=== PATIENT | female | born 1990 | race Hispanic/Latino ===

== ENCOUNTER 2020-09-22 13:16 | Outpatient (RCR) | payer OTHER, SELFPAY ==
[2020-08-18 11:31] VITALS: BP 100/61; PULSE 82
[2020-09-22 13:50] VITALS: BP 102/70; PULSE 73
== END 2020-10-17 07:46 | disposition home or self-care (01) ==
LOC: ANHOBOP 13:16
PROVIDERS: PCP Obstetrics & Gynecology; Visit Provider Obstetrics & Gynecology
DX: P59.9 Neonatal jaundice, unspecified (principal)
CPT/HCPCS: 59025

== ENCOUNTER 2020-10-03 05:56 | Inpatient (IN) | payer OTHER, SELFPAY ==
[2020-10-03] VITALS (69 sets, daily range): BP systolic 96–128; BP diastolic 61–97; PULSE 64–102; RESP 14–16; TEMP 36.3–36.9; O2SAT 96–100; BMI 33.3
[2020-10-03 06:57] LABS: Basophils Percent Auto 0.3 % (0.2-1.2); Eosinophils Absolute Auto 0.1 K/mm3 (0-0.3); Eosinophils Percent Auto 0.7 % (0-4.4); Hematocrit 36.1 % (37.0-47.0); Hemoglobin 12.4 g/dL (12.0-15.0); Immature Granulocyte Absolute 0.02 K/mm3 (0.00-0.031); Immature Granulocyte Percent A 0.3 % (0-0.5); Lymphocytes Absolute Auto 1.78 K/mm3 (0.9-3.2); Lymphocytes Percent Auto 23.6 % (18.3-44.2); Mean Corpuscular HGB Conc 34.3 g/dl (32-36); Mean Corpuscular Hemoglobin 29.3 pg (26-34); Mean Corpuscular Volume 85.3 fl (80-100); Mean Platelet Volume 11.2 fl (7.4-10.4); Monocytes Absolute Auto 0.7 K/mm3 (0.1-0.6); Monocytes Percent Auto 8.9 % (2.6-8.5); Neutrophils Percent Auto 66.2 % (45.5-73.1); Platelet Count Result 249 k/mm3 (150-375); Red Blood Count 4.23 M/mm3 (4.2-5.4); White Blood Count 7.5 K/mm3 (4.5-10.0)
--- NOTE | 2020-10-03 07:09 | LDADM ---
This patient, Henrietta Wilburn, was admitted to Labor/Delivery/Recovery 103 on 10/03/20 at 05:56. Plans for labor, pain management and were discussed with patient. Patient/family oriented to hospital policies and general routines including ID bracelet, bed and alarms, visiting hours, pain management, procedures, bathroom and other care routines, personal items, smoking policy, room service/diet and guest tray routines, security routines, and visiting hours. Patient/Family are encouraged to report perceived risks to care and to ask questions if they do not understand what they are told or what they should do. See OBIX for further documentation.
[2020-10-03] MEDS: LACTATED RINGERS 1,000 ML 125 ML IV CONT (07:21)
[2020-10-03] MEDS: OXYTOCIN 30 UNITS/NS 500 ML 30 UNITS/500 ML BAG IV CONT (07:27)
[2020-10-03 07:38] LABS: Glucose Point of Care 110 (65-105)
--- NOTE | 2020-10-03 07:51 | WPDOBADMIT ---
Obstetrics - Admit Note Admission Note: record reviewed. No pertinent additions to the history and/or any subsequent changes in the physical findings that are not consistent with the expected course of the were found. Additions to the history and/or subsequent changes in the physical findings follow. None. 39.5 well controlled GDM on 8u NPH at night. Also HSV on valtrex. AROM clear/blood tinged. 2.5cm/50/-3. Pitocin per protocol. GBS neg.
[2020-10-03] MEDS: LACTATED RINGERS 1,000 ML 999 ML IV CONT (09:42)
--- NOTE | 2020-10-03 10:34 | WPDANESEPP ---
Anes - Eval Pre Procedure Procedure: Labor Epidural Date/Time: 10/03/20 10:34 Surgeon: Yovani Preop Diagnosis: Labor Pain Pre Op Diagnosis: Induction Patient Data Age: 30 Gender: F Height: 4 ft 11 in Weight: 75 kg Last Vital Signs Temp 36.6 C 10/03/20 09:30 Pulse 73 10/03/20 10:33 BP 110/68 10/03/20 10:33 Pulse Ox 97 10/03/20 10:29 Allergies Allergy/AdvReac Type Severity Reaction Status Date / Time No Known Allergies Allergy Verified 09/05/20 13:35 Home Medications Medication Instructions Recorded Confirmed Type insulin NPH isoph U-100 human 8 unit SUBCUT HS 09/05/20 09/05/20 History [Humulin N NPH U-100 Insulin] prenat.vits,jessica,ror-oyvo-yylwd 1 tablet PO DAILY 09/05/20 09/05/20 History [ #2] valacyclovir [Valtrex] 1,000 mg PO DAILY 10/03/20 10/03/20 History Laboratory Tests 10/03/20 10/03/20 10/03/20 06:51 06:51 06:51 WBC 7.5 K/mm3 K/mm3 (4.5-10.0) RBC 4.23 M/mm3 M/mm3 (4.2-5.4) Hgb 12.4 g/dL g/dL (12.0-15.0) Hct 36.1 % L % (37.0-47.0) MCV 85.3 fl fl (80-100) MCH 29.3 pg pg (26-34) MCHC 34.3 g/dl g/dl (32-36) RDW 16.0 % H % (11.5-14.5) Plt Count 249 k/mm3 k/mm3 (150-375) MPV 11.2 fl H fl (7.4-10.4) Immature Gran % (Auto) 0.3 % % (0-0.5) Neut % (Auto) 66.2 % % (45.5-73.1) Lymph % (Auto) 23.6 % % (18.3-44.2) Garvin % (Auto) 8.9 % H % (2.6-8.5) Eos % (Auto) 0.7 % % (0-4.4) Baso % (Auto) 0.3 % % (0.2-1.2) Lymph # (Auto) 1.78 K/mm3 K/mm3 (0.9-3.2) Garvin # (Auto) 0.7 K/mm3 H K/mm3 (0.1-0.6) Eos # (Auto) 0.1 K/mm3 K/mm3 (0-0.3) Baso # (Auto) 0.0 K/mm3 K/mm3 (0.0-0.1) Abs Immat Gran (auto) 0.02 K/mm3 K/mm3 (0.00-0.031) Absolute Neuts (auto) 5.0 K/mm3 K/mm3 (1.3-6.7) Absolute Nucleated RBC 0.0 K/mm3 K/mm3 (0.0-0.012) Nucleated RBC % 0.0 % % (0.0-0.2) POC Capillary Glucose RPR Pending Blood Type O Positive Antibody Screen Negative 10/03/20 07:34 WBC RBC Hgb Hct MCV MCH MCHC RDW Plt Count MPV Immature Gran % (Auto) Neut % (Auto) Lymph % (Auto) Garvin % (Auto) Eos % (Auto) Baso % (Auto) Lymph # (Auto) Garvin # (Auto) Eos # (Auto) Baso # (Auto) Abs Immat Gran (auto) Absolute Neuts (auto) Absolute Nucleated RBC Nucleated RBC % POC Capillary Glucose 110 mg/dl mg/dl (65-105) RPR Blood Type Antibody Screen : gestational age (SHAMA 10/05/20, ) Patient hx anesthesia problems: none Family hx anesthesia problems: none [facility] Family History Family History Other Unknown family medical history Social History Social History Smoking status: Never smoker Second hand tobacco smoke exposure: No Substance use: never Spiritual care concerns: No Exam Day of Procedure 10/03/20 10:34 Patient weight: normal Heart: regular rate and rhythm Lungs: normal air movement Airway: Mallampati scale class II Neurological: alert and oriented
[2020-10-03 11:45] LABS: Glucose Point of Care 90 (65-105)
--- NOTE | 2020-10-03 12:27 | PM.OBPRVD ---
OB - Delivery Note Procedure Delivery date: 10/03/20 Procedure: events: Gestational Diabetes Intrapartal events: None Induction method: AROM and per pitocin protocol Delivery monitor: external FHT Route of delivery: Laceration Description: Perineal - 2nd Degree Delivery repair: vicryl Specimen: No Quantitative Blood Loss (ml): 300 Anesthesia type: Epidural Disposition: floor Narrative: With adequate expulsive efforts by the mother, the baby's head was delivered OA. The baby's anterior shoulder was delivered under the pubic symphysis without difficulty. The posterior shoulder and the rest of the baby delivered without difficulty. The infant was placed on the mothers chest and suctioned and stimulated. The cord was clamped and cut after 30 seconds. Mother and baby both stable. Baby Date of : 10/03/20 Time of : 12:12 Weeks of gestation at delivery: 39 gender: Female Weight (pounds): 6 Weight (ounces): 15 presentation: vertex position: Left Occiput Anterior Placenta delivery description: Spontaneous cord vessel description: 3 Vessels and Delayed Cord Clamping score one minute: 8 score five minutes: 9
[2020-10-03] MEDS: OXYTOCIN 30 UNITS/NS 500 ML 30 UNITS/500 ML BAG 125 UNITS IV CONT (12:54)
[2020-10-03] MEDS: IBUPROFEN 600 MG TABLET PO (13:43)
--- NOTE | 2020-10-03 14:55 | OBPPTRN ---
Addendum entered by Briana Hill RN 10/03/20 16:18: Admission completed with the assistance of the [employer] terrazzo finisher line. Original Note: Patient transferred to post room # 291 via wheelchair. Support person present. Oriented to unit, room, information board, rooming in, admission packet and security measures. Patient verbalizes understanding.
--- NOTE | 2020-10-03 15:37 | PC.NURSE ---
Consulted with patient, reviewed feeding elimination flow sheet and when to call doctor when discharged. Given mom the number for once she is discharged. Mom states she wants to pump and bottlefeed, encouraged mom to pump every 3 hours. Breast pump provided due to mother requesting to pump and feed. Instructions given on breast pump care and usage, pumping schedule, nipple care, and collection and storage of breast milk. Encouraged [id number], breast massage and manual expression to stimulate supply. Assessed patient for correct flange size, placement and draw. Patient verbalizes and demonstrates understanding of instructions.
[2020-10-03] MEDS: ACETAMINOPHEN 325 MG TABLET 650 MG PO (17:04)
[2020-10-04] MEDS: IBUPROFEN 600 MG TABLET PO ×3 (00:13→15:21)
[2020-10-04 04:10] VITALS: BP 93/58; PULSE 76; RESP 16; TEMP 36.6; O2SAT 99
[2020-10-04 04:16] LABS: Glucose Point of Care 101 (65-105)
[2020-10-04] MEDS: ACETAMINOPHEN 325 MG TABLET 650 MG PO (04:16)
--- NOTE | 2020-10-04 04:27 | PC.NURSE ---
Fasting blood sugar result of 101 at 0410 this am.
[2020-10-04 04:52] LABS: Hemoglobin 10.3 g/dL (12.0-15.0)
--- NOTE | 2020-10-04 07:33 | P.PNOB_ITS ---
OB - PN: Subj Subjective Date/time seen: 10/04/20 07:33 Patient comments: no complaints baby status: doing well and nursing well [place] feeding status: breast and bottle feeding Narrative: Some cramping. E/A/V. Ready for DC home today. OB - PN: Obj Data Labs CBC & Chem 7: 10/04/20 04:06 Labs: Laboratory Results - last 24 hr 10/03/20 10/03/20 10/03/20 06:51 07:34 11:31 Hgb Hct POC Capillary Glucose 110 90 Blood Type O Positive Antibody Screen Negative 10/04/20 10/04/20 04:04 04:06 Hgb 10.3 L Hct 30.0 L POC Capillary Glucose 101 Blood Type Antibody Screen OB - PN A/P Plan day: 1 Plan: routine care and discharge home Comments: DC instructions given. FU 4 weeks. Time Spent With Patient Time: Total time spent is greater than 50% in coordination of care (as documented) at patient's floor/unit and/or counseling patient: Time with patient: less than 15 minutes Exam Narrative: Exam Narrative: NAD abdomen soft, nontender, fundus firm below the umbilicus Extremities nontender, 1+ edema
--- NOTE | 2020-10-04 07:37 | P.DS_ITS ---
DS: Admitting Diagnosis Admitting Diagnosis Admitting Diagnosis: term IUP 39.5, GDMA2 DS: Discharge Diagnosis Discharge Diagnosis (1) Term delivered: Code(s): O80 - Encounter for full-term uncomplicated delivery Status: Acute (2) Gestational diabetes: Code(s): O24.419 - Gestational diabetes mellitus in , unspecified control Status: Acute OB - DS: Summary OB Procedures : None OB Procedures Intrapartum: Spontaneous Vag Delivery OB Procedures: : None Peripartum Data Delivery Method: Natural Vaginal Laceration Description: Perineal - 2nd Degree complications: none Status at Discharge Functional status at discharge: independent ambulation Time Spent with Patient Time attestation: Total time spent providing and/or coordinating discharge services: Exam Narrative: Exam Narrative: NAD abdomen soft, appropriately tender Ext non tender, 1+ edema DS: Data Data Completed and Pending Labs on day of discharge: Labs from last 24 hours 10/04/20 10/04/20 10/03/20 04:06 04:04 11:31 Hgb 10.3 L Hct 30.0 L POC Capillary Glucose 101 90 Blood Type Antibody Screen 10/03/20 10/03/20 07:34 06:51 Hgb Hct POC Capillary Glucose 110 Blood Type O Positive Antibody Screen Negative Discharge Plan Discharge Attending physician on discharge: Mandy Purcell Discharging Clinician: Mandy Purcell Anticipated Discharge Date/Time: 10/04/20 14:00 Patient Disposition: Home, Self-Care Activity: may shower and pelvic rest Diet: as tolerated Discharge Instructions: FU 4 weeks pelvic rest 6 weeks Patient Instructions: Antibiotic Form Patient Language: Greenlandic Stand Alone Forms: General Discharge Information Follow-up/Referrals: Mandy Purcell MD [Physician] - (4 weeks) Discharge Medications: Continued #2 Tablet 1 tablet PO DAILY RF: 0 Discontinued Humulin N NPH U-100 Insulin 100 unit/mL Suspension 8 unit SUBCUT HS RF: 0 valacyclovir [Valtrex] 1 gram tablet 1,000 mg PO DAILY RF: 0 Date of admission: 10/03/20 05:56 Primary Care Provider: PHYSICIAN,MANUFACTURING QUALITY INSPECTOR Admitting Provider: Yajaira Pina Attending physician on admission: Yajaira Pina Condition: Stable
--- NOTE | 2020-10-04 07:42 | P.DS_ITS ---
DS: Admitting Diagnosis Admitting Diagnosis Admitting Diagnosis: IUP 39.5 GDMA2 DS: Discharge Diagnosis Discharge Diagnosis (1) Term delivered: Code(s): O80 - Encounter for full-term uncomplicated delivery Status: Acute (2) Gestational diabetes: Code(s): O24.419 - Gestational diabetes mellitus in , unspecified control Status: Acute DS: Summary Hospital Course Hospital Course: Uncomplicated pp course. Status at Discharge Functional status at discharge: independent ambulation Time Spent with Patient Time attestation: Total time spent providing and/or coordinating discharge services: Exam Narrative: Exam Narrative: NAD abdomen soft, appropriately tender Ext non tender, 1+ edema DS: Data Data Completed and Pending Labs on day of discharge: Labs from last 24 hours 10/04/20 10/04/20 10/03/20 04:06 04:04 11:31 Hgb 10.3 L Hct 30.0 L POC Capillary Glucose 101 90 Blood Type Antibody Screen 10/03/20 06:51 Hgb Hct POC Capillary Glucose Blood Type O Positive Antibody Screen Negative Discharge Plan Discharge Attending physician on discharge: Mandy Purcell Discharging Clinician: Mandy Purcell Anticipated Discharge Date/Time: 10/04/20 14:00 Patient Disposition: Home, Self-Care Activity: may shower and pelvic rest Diet: as tolerated Discharge Instructions: FU 4 weeks pelvic rest 6 weeks Patient Instructions: Antibiotic Form Patient Language: Urdu Stand Alone Forms: General Discharge Information Follow-up/Referrals: Mandy Purcell MD [Physician] - (4 weeks) Discharge Medications: Continued #2 Tablet 1 tablet PO DAILY RF: 0 Discontinued Humulin N NPH U-100 Insulin 100 unit/mL Suspension 8 unit SUBCUT HS RF: 0 valacyclovir [Valtrex] 1 gram tablet 1,000 mg PO DAILY RF: 0 Date of admission: 10/03/20 05:56 Primary Care Provider: PHYSICIAN,WELL LOGGING CAPTAIN MUD ANALYSIS Admitting Provider: Yajaira Pina Attending physician on admission: Yajaira Pina Condition: Stable
[2020-10-04 08:00] VITALS: BP 89/58; BP 89/59; PULSE 80; RESP 18; TEMP 36.3; O2SAT 100
--- NOTE | 2020-10-04 08:03 | WPDANLDPN2 ---
Anes-Prog Note L&D Date/Time: 10/04/20 08:03 Comfortable throughout: labor and delivery Neuraxial method: epidural Epidural/Spinal procedure site: clean & non-tender Neuro status: Neuro function grossly intact. Cardiovascular status: normal Respiratory status: normal Airway patency: baseline Mental status: baseline Post-Op hydration status: normal Vital Signs: Last Vital Signs Temp 36.6 C 10/04/20 04:10 Pulse 76 10/04/20 04:10 Resp 16 10/04/20 04:10 BP 93/58 L 10/04/20 04:10 Pulse Ox 99 10/04/20 04:10 Pain score (VAS): 0 I/O: Intake & Output 10/03/20 10/04/20 10/04/20 23:59 07:59 15:59 Output Total 117 Balance -117 Post-procedural complaints: none Patient feedback: Patient satisfied with anesthetic care.
[2020-10-04] MEDS: WITCH HAZEL 40 PADS 1 PAD TOPICAL (08:34)
[2020-10-04] MEDS: MULTIVIT/MIN/PREN/FOL AC/IRON TABLET 1 TAB PO (08:34)
[2020-10-04] MEDS: DOCUSATE SODIUM 100 MG CAPSULE PO (08:34)
[2020-10-04] MEDS: BENZOCAINE 20% AER SPR (*SP) 56 GM CAN 1 SPRAY TOPICAL (08:34)
[2020-10-04] MEDS: LANOLIN (LANSINOH) 7.5 GM CREAM 1 APPLIC TOPICAL (08:34)
--- NOTE | 2020-10-04 09:37 | PC.NURSE ---
Reviewed Instructions given on breast pump care and usage, pumping schedule, nipple care, and collection and storage of breast milk. Encouraged vufc-sk-[id number], breast massage and manual expression to stimulate supply. Patient verbalizes and demonstrates understanding of instructions.
--- NOTE | 2020-10-04 09:43 | PC.NURSE ---
education done using language device.
[2020-10-04 11:08] LABS: Rapid Plasma Reagin Non-Reactive (NonReactive)
[2020-10-04] MEDS: TETANUS,DIPHTHERIA,AC PERTUSSIS ADULT (0.5 ML) BOOSTRIX IM (15:19)
--- NOTE | 2020-10-04 16:05 | PC.NURSE ---
Self care and infant care discharge instructions given through the [employer] with estonian speaking jtac. Included instructions were when to return for follow up visit date and time. Pt. and verbalized understanding. No questions or concerns voiced. Very pleasant and cooperative.
[2020-10-05 08:27] VITALS: BP 114/67; PULSE 74; RESP 20; TEMP 36.9; O2SAT 99
== END 2020-10-04 16:00 | disposition home or self-care (01) | DRG 560 ==
LOC: ANHOB2 10-04 07:42 → ANHLDR 10-06 09:36 → ANHOB2 10-06 09:36
PROVIDERS: Admitting Provider Obstetrics & Gynecology; Visit Provider Obstetrics & Gynecology
DX: O24.429 Gestational diabetes mellitus in childbirth, unspecified control (principal); Z37.0 Single live birth; Z3A.39 39 weeks gestation of pregnancy; O98.32 Other infections with a predominantly sexual mode of transmission complicating childbirth; B00.9 Herpesviral infection, unspecified; O70.1 Second degree perineal laceration during delivery; Z23 Encounter for immunization
CPT/HCPCS: 36415; 85014; 85018; 85025; 86592; 86850; 86900; 86901; 90471; 90653; 90715; A9270; G0008; J2590; J2795; J7120

== ENCOUNTER 2020-11-21 09:52 | Emergency (ER) | payer OTHER, SELFPAY ==
[2020-11-21 10:39] VITALS: BP 97/64; PULSE 98; RESP 18; TEMP 36.9; O2SAT 99
--- NOTE | 2020-11-21 11:44 | ED.SKABFB ---
HPI - Skin/Abscess/Foreign Bdy General Chief complaint: Skin/Abscess/Foreign Body <Farzaneh Dang PA-C - Last Filed: 11/21/20 13:00> Stated complaint: , pain to left breast and temp 100.3 <ISABELA Hudson Last Filed: 11/21/20 13:00> Time Seen by Provider: 11/21/20 11:05 <ISABELA Hudson Last Filed: 11/21/20 13:00> Source: patient <ISABELA Hudson Last Filed: 11/21/20 13:00> Mode of arrival: ambulatory <ISABELA Hudson Last Filed: 11/21/20 13:00> Limitations: language barrier (Used video translator/interpreter) <ISABELA Hudson Last Filed: 11/21/20 13:00> History of Present Illness HPI narrative: This is a 30-year-old female that presents the emergency department for left breast pain since yesterday. Reports tenderness and swelling to the area. Reports a fever of 100.3 in the night. Reports she is currently pumping, she is not breast-feeding. Reports the last time she pumped with her left breast was yesterday morning as it is very painful. Reports she is about 7 weeks . She does have an appointment to see her OB on of this week. Denies erythema. <Farzaneh Dang PA-C - Last Filed: 11/21/20 13:00> Related Data Home medications: Home Medications Medication Instructions Recorded Confirmed prenat.vits,jessica,gwi-pftm-jxqps 1 tablet PO DAILY 09/05/20 09/05/20 <ISABELA Hudson Last Filed: 11/21/20 13:00> Allergies/Adverse reactions: Allergies Allergy/AdvReac Type Severity Reaction Status Date / Time No Known Allergies Allergy Verified 11/21/20 12:06 <ISABELA Husdon Last Filed: 11/21/20 13:00> Review of Systems Review of Systems: Narrative: CONSTITUTIONAL: Reports fever BREAST: Reports swelling. Denies redness <ISABELA Hudson Last Filed: 11/21/20 13:00> All systems reviewed & are unremarkable except as noted in HPI and below <Farzaneh Dang PA-C - Last Filed: 11/21/20 13:00> [facility] Past Medical History Medical History: Medical History (Updated 11/21/20 @ 11:45 by Farzaneh Dang PA-C) Patient denies medical problems <Farzaneh Dang PA-C - Last Filed: 11/21/20 13:00> Family History Family History: Family History (System 10/05/20 @ 13:22 by Clarisse Garvey) Other Unknown family medical history <Farzaneh Dang PA-C - Last Filed: 11/21/20 13:00> Social History Social History: Social History (System 10/05/20 @ 13:22 by Clarisse Garvey) Smoking status: Never smoker Second hand tobacco smoke exposure: No Substance use: never Gender identity (if verbalized by the patient): Female Spiritual care concerns: No <Farzaneh Dang PA-C - Last Filed: 11/21/20 13:00> Exam Narrative: Exam Narrative: GENERAL: Well-appearing, well-nourished, and in no acute distress. HEAD: Normocephalic, atraumatic. EYES: EOMI. CHEST: Clear to auscultation. No respiratory distress. No wheezes rales or rhonchi HEART: Regular rate and rhythm. No murmur heard. Normal peripheral pulses. EXTREMITIES: Normal range of motion. No edema. SKIN: Warm, dry, no rash. NEURO: No focal deficits. Alert and oriented x3. PSYCH: Normal mood and affect BREAST: Left breast tender to palpation. No concerning swelling or erythema. Mild is easily expressed from the nipple <Farzaneh Dang PA-C - Last Filed: 11/21/20 13:00> Course Consultations Consultation #1: Spoke with Dr. Pina about patient and work-up. Patient will follow up at scheduled appointment this week <Farzaneh Dang PA-C - Last Filed: 11/21/20 13:00> Date: 11/21/20 <Farzaneh Dang PA-C - Last Filed: 11/21/20 13:00> Time: 12:53 <Farzaneh Dang PA-C - Last Filed: 11/21/20 13:00> Vital Signs Vital signs: Vital Signs Temperature 98.4 F 11/21/20 10:39 Pulse Rate 98 11/21/20 10:39 Respiratory Rate 18 11/21/20 10:39 Blood Pressure 97/64 L 11/21/20 10:39 P
== END 2020-11-21 13:05 | disposition home or self-care (01) ==
PROVIDERS: Emergency Provider General Practice; PCP Registered Nurse
DX: O91.22 Nonpurulent mastitis associated with the puerperium (principal)
CPT/HCPCS: 99283

== ENCOUNTER 2021-08-25 23:28 | Emergency (ER) | payer OTHER, SELFPAY ==
--- NOTE | ~2021-08-25 | CT_ITS ---
EXAMINATION: CT brain wo con DATE: 08/26/2021 03:34 INDICATION: Headache TECHNIQUE: Computed tomography (CT) of the head was performed without intravenous contrast. Sagittal and coronal reconstructions were performed. The mA was adjusted according to patient size. Iterative reconstruction technique was employed. The dose-length product was 605.33 mGy-cm. COMPARISON: None FINDINGS: No acute intracranial hemorrhage, acute infarction or abnormal extra axial fluid collection. Ventricl es are normal and symmetric. No mass/mass effect. The orbits, paranasal sinuses and mastoid air cells are normal. IMPRESSION: 1. Normal head CT. Reviewed, dictated and finalized at location A. OLOGIC TECHNOLOGIST IMPRESSION: 1. Normal head CT.
[2021-08-25 23:31] VITALS: BP 124/74; PULSE 66; RESP 18; TEMP 35.8; O2SAT 99
[2021-08-26 02:14] VITALS: BP 122/76; PULSE 64; RESP 15; O2SAT 100
[2021-08-26] MEDS: diphenhydrAMINE HCl INJ 50 MG/ML VIAL 25 MG IV PUSH (03:51)
[2021-08-26 03:52] VITALS: BP 117/73; PULSE 70; RESP 17; O2SAT 97
[2021-08-26] MEDS: PROCHLORPERAZINE EDISYLATE 10 MG/2 ML VIAL IV PUSH (03:52)
[2021-08-26] MEDS: SODIUM CHLORIDE 0.9% IV 1,000 ML 999 ML IV CONT (03:52)
--- NOTE | 2021-08-26 03:56 | ED.HA ---
HPI - Headache General Chief Complaint: Headache Stated Complaint: headache Time Seen by Provider: 08/26/21 02:58 Source: patient and historical interpreter History of Present Illness HPI Narrative: Patient presents with concern for headache. Patient tos she has had intermittent headaches since she was 15 years that resolved with rest however over the years they have become increasingly more intense and no longer appear to be alleviated with Tylenol so she came to the ER for evaluation. Her pain is achy/throbbing/sharp, no clear aggravating or alleviating factors, radiates down the right side of her neck. She does report some paresthesias on her arm. She denies any trauma or recent spinal instrumentation. She denies any history of IV drug use. She denies any fevers, cough, nausea, vomiting Related Data Home Medications Medication Instructions Recorded Confirmed No Home Medications 06/29/21 06/29/21 Allergies Allergy/AdvReac Type Severity Reaction Status Date / Time No Known Allergies Allergy Verified 08/26/21 02:15 Review of Systems Review of Systems: CONSTITUTIONAL: Denies fever, chills, or sweats. EYES: Denies visual changes, redness, or discharge. ENT: Denies rhinorrhea, congestion, sore throat, or otalgia. CARDIOVASCULAR: Denies chest pain, palpitations, or edema. RESPIRATORY: Denies cough or dyspnea. GASTROINTESTINAL: Denies abdominal pain, nausea, vomiting, or diarrhea. GENITOURINARY: Denies dysuria or hematuria. SKIN: Denies rash or itching. MUSCULOSKELETAL: Denies back pain, joint pain, or myalgia. NEUROLOGIC: Denies dizziness, or weakness. PSYCHIATRIC: Denies anxiety or depression. All systems reviewed & are unremarkable except as noted in HPI and below PMFSH Past Medical History Medical History Patient denies medical problems Family History Family History Other Unknown family medical history Social History Social History Smoking status: Never smoker Second hand tobacco smoke exposure: No Substance use: never Gender identity (if verbalized by the patient): Female Spiritual care concerns: No Exam Narrative: GENERAL: Well-appearing, well-nourished, and in no acute distress. HEAD: Normocephalic, atraumatic. EYES: PERRLA and EOMI. ENT: Nares clear, no rhinorrhea or epistaxis. Mucous membranes moist. NECK: Supple. No masses. No JVD CHEST: Clear to auscultation. No respiratory distress. No wheezes rales or rhonchi HEART: Regular rate and rhythm. No murmur heard. Normal peripheral pulses. ABDOMEN: Soft, nontender, nondistended, normal active bowel sounds. EXTREMITIES: Normal range of motion. No edema. SKIN: Warm, dry, no rash. NEURO: Cranial nerves II through XII are intact patient has 5 out of 5 strength in all extremities, sensation intact to light touch in all extremities. alert and oriented x3. PSYCH: Normal mood and affect. Course Reevaluation(s) Reevaluation #1: Patient ports feeling much improved results obtained with patient. Patient comfortable with outpatient plan. Date: 08/26/21 Time: 05:55 Vital Signs Vital signs: Vital Signs Temperature 35.8 C L 08/25/21 23:31 Pulse Rate 66 08/25/21 23:31 Respiratory Rate 18 08/25/21 23:31 Blood Pressure 124/74 08/25/21 23:31 Pulse Oximetry 99 08/25/21 23:31 Temperature 35.8 C L 08/25/21 23:31 Pulse Rate 60 08/26/21 06:24 Respiratory Rate 16 08/26/21 06:24 Blood Pressure 115/73 08/26/21 06:24 Pulse Oximetry 100 08/26/21 06:24 MDM - Headache MDM Narrative Medical decision making narrative: H&P as above, vss, pt looks clinically well, exam without focal neurological deficits, labs clinically unremarkable, img clinically unremarkable, additional labs/img considered, symptomatic relief available as needed, on reevaluation pt continues to lo
[2021-08-26 04:09] LABS: Basophils Percent Auto 0.3 % (0.2-1.2); Eosinophils Absolute Auto 0.2 K/mm3 (0-0.3); Eosinophils Percent Auto 2.7 % (0-4.4); Hematocrit 38.4 % (37.0-47.0); Hemoglobin 13.2 g/dL (12.0-15.0); Immature Granulocyte Absolute 0.02 K/mm3 (0.00-0.031); Immature Granulocyte Percent A 0.3 % (0-0.5); Lymphocytes Percent Auto 38.1 % (18.3-44.2); Mean Corpuscular HGB Conc 34.4 g/dl (32-36); Mean Corpuscular Hemoglobin 30.6 pg (26-34); Mean Corpuscular Volume 88.9 fl (80-100); Mean Platelet Volume 9.6 fl (7.4-10.4); Monocytes Absolute Auto 0.6 K/mm3 (0.1-0.6); Neutrophils Absolute Auto 3.7 K/mm3 (1.3-6.7); Neutrophils Percent Auto 50.6 % (45.5-73.1); Platelet Count Result 379 k/mm3 (150-375); Red Blood Count 4.32 M/mm3 (4.2-5.4); Red Cell Distribution Width 13.2 % (11.5-14.5); White Blood Count 7.4 K/mm3 (4.5-10.0)
[2021-08-26 04:21] LABS: Alanine Aminotransferase 20 U/L (4-35); Albumin Level 4.5 g/dL (3.5-5.1); Alkaline Phosphatase 77 U/L (38-126); Anion Gap 9 mmol/L (8-16); Aspartate Amino Transferase 22 U/L (14-36); Bilirubin,Total 0.6 mg/dL (0.2-1.3); Blood Urea Nitrogen 15 mg/dL (7-17); Calcium 9.4 mg/dL (8.4-10.2); Carbon Dioxide 25 mmol/L (22-30); Chloride 101 mmol/L (98-107); Estimated CRCL calculation 129 ml/min; Estimated Glomerular Filt Rate > 60; Glucose 101 mg/dL (65-110); Potassium 3.6 mmol/L (3.4-5.0); Sodium 135 mmol/L (137-145)
[2021-08-26 05:00] VITALS: BP 110/62; PULSE 64; RESP 17; O2SAT 99
[2021-08-26 06:24] VITALS: BP 115/73; PULSE 60; RESP 16; O2SAT 100
== END 2021-08-26 06:26 | disposition home or self-care (01) ==
PROVIDERS: Emergency Provider Emergency Medicine; PCP Registered Nurse
DX: R51.9 Headache, unspecified (principal)
CPT/HCPCS: 36415; 70450; 80053; 85025; 96365; 96375; 99284; J0131; J0780; J1200; J7030

== ENCOUNTER 2022-10-10 14:50 | Emergency (ER) | payer OTHER, SELFPAY ==
[2022-10-10 14:59] VITALS: BP 103/67; PULSE 69; RESP 16; TEMP 36.5; O2SAT 99
--- NOTE | 2022-10-10 15:06 | ED.GENADULT ---
HPI - General Adult General Chief complaint: Dental/Oral Stated complaint: SORES IN MOUTH Source: patient Mode of arrival: ambulatory Limitations: no limitations History of Present Illness HPI narrative: 32-year-old female presenting for complaint of fever blister to the right lower lip corner. Onset 2 days ago. She has been using Abreva. She states this started off with his increased in size. Endorses pain. Denies drainage. Denies recent illness. Denies any other locations of lesions. Also denies history of these lesions. Related Data Allergies Allergy/AdvReac Type Severity Reaction Status Date / Time No Known Allergies Allergy Verified 10/10/22 14:56 Review of Systems Review of Systems: CONSTITUTIONAL: Denies body aches, fever, chills, or sweats. EYES: Denies visual changes, redness, or discharge. ENT: Denies rhinorrhea, congestion CARDIOVASCULAR: Denies chest pain, palpitations, or edema. RESPIRATORY: Denies cough or dyspnea. GASTROINTESTINAL: Denies abdominal pain, nausea, vomiting, or diarrhea. SKIN: per HPI MUSCULOSKELETAL: Denies back pain, joint pain, or myalgia. NEUROLOGIC: Denies headache, numbness, tingling, or weakness. [facility] Past Medical History Medical History Patient denies medical problems Family History Family History Other Unknown family medical history Social History Social History Smoking status: Never smoker Second hand tobacco smoke exposure: No Substance use: never Gender identity (if verbalized by the patient): Female Spiritual care concerns: No Comments At time of signature, I have reviewed and agree with nursing past medical, surgical, social and family history unless otherwise noted. Please see nursing chart for further information. There is no relevant family history pertinent to the presenting complaint Exam Narrative: GENERAL: Well-appearing HEAD: Normocephalic, atraumatic. EYES: conjunctivae clear, and EOMI. ENT: Mucous membranes moist. Oropharynx without edema, erythema or lesions. NECK: Supple. No lymphadenopathy CHEST: Clear to auscultation. HEART: Regular rate and rhythm. SKIN: Warm, dry. Right lower corner of mouth with vesicular lesion approx 0.5cm diameter c/w herpes labialis, no active drainage, tender with palpation NEURO: Alert and oriented x3. Course Course Emergency Course: Patient is aware of diagnosis, understands and agrees to treatment plan. Anticipatory guidance given. Patient agrees to follow-up as directed and is aware of reasons to seek care at the emergency department. Portions of this record may have been created with voice recognition software Level of Care: Express Care Visit Vital Signs Vital signs: Vital Signs Temperature 97.7 F 10/10/22 14:59 Pulse Rate 69 10/10/22 14:59 Respiratory Rate 16 10/10/22 14:59 Blood Pressure 103/67 10/10/22 14:59 Pulse Oximetry 99 10/10/22 14:59 Temperature 97.7 F 10/10/22 14:59 Pulse Rate 69 10/10/22 14:59 Respiratory Rate 16 10/10/22 14:59 Blood Pressure 103/67 10/10/22 14:59 Pulse Oximetry 99 10/10/22 14:59 Reviewed Medical Decision Making Differential Diagnosis Differential Diagnosis: cellulitis, zoster, HSV Vital Signs Vital Signs: Vital Signs Temperature 97.7 F 10/10/22 14:59 Pulse Rate 69 10/10/22 14:59 Respiratory Rate 16 10/10/22 14:59 Blood Pressure 103/67 10/10/22 14:59 Pulse Oximetry 99 10/10/22 14:59 Temperature 97.7 F 10/10/22 14:59 Pulse Rate 69 10/10/22 14:59 Respiratory Rate 16 10/10/22 14:59 Blood Pressure 103/67 10/10/22 14:59 Pulse Oximetry 99 10/10/22 14:59 Discharge Plan Discharge Clinical Impression: Cold sore Patient Disposition: Home, Self-Care Condition: Stable Instructions: Ora
== END 2022-10-10 15:12 | disposition home or self-care (01) ==
PROVIDERS: Emergency Provider Nurse Practitioner Family; PCP Registered Nurse
DX: B00.1 Herpesviral vesicular dermatitis (principal)
CPT/HCPCS: 99213; G0463

== ENCOUNTER 2022-12-27 13:15 | Outpatient (CLI) | payer OTHER, SELFPAY ==
--- NOTE | ~2022-12-27 | MMUS_ITS ---
EXAMINATION: MM diagnostic roxy BI w vahid, US breast RT limited HISTORY: Right breast lump. TECHNIQUE: Additional 3-D tomosynthesis images of the breasts were performed and synthetic 2-D images were generated. CAD analysis was submitted and interpreted. High resolution Limited right breast ult rasound was performed. COMPARISON: No prior studies for comparison. BREAST PARENCHYMAL COMPOSITION: The breasts are heterogeneously dense, which may obscure small masses FINDINGS: MAMMOGRAPHIC FINDINGS: There are no suspicious masses, calcifications or architectural distortion in either breast to sugges t malignancy. ULTRASOUND: Limited right breast ultrasound: Normal heterogeneous without focal solid or cystic mass. IMPRESSION: 1. No evidence for malignancy in either breast. 2. Routine yearly screening mammogram and regular clinical breast examination are recommended. BI-RADS Category 1: Negative Reviewed, dictated and finalized at location A. IMPRESSION: 1. No evidence for malignancy in either breast. 2. Routine yearly screening mammogram and regular clinical breast examination a re recommended. BI-RADS Category 1: Negative
== END 2022-12-27 13:16 | disposition home or self-care (01) ==
PROVIDERS: PCP Registered Nurse; Visit Provider Obstetrics & Gynecology
DX: N63.0 Unspecified lump in unspecified breast (principal)
CPT/HCPCS: 76642; 77062; 77066; G0279

== ENCOUNTER 2023-04-29 19:31 | Emergency (ER) | payer OTHER, SELFPAY ==
--- NOTE | 2023-04-29 19:34 | ED.URI ---
HPI - URI/Sore Throat General Chief Complaint: Upper Respiratory Infection Stated Complaint: Chills;Headache;Nausea Time Seen by Provider: 04/29/23 19:33 Source: patient Mode of arrival: ambulatory Limitations: no limitations History of Present Illness HPI Narrative: Henrietta is a 33-year-old female patient presenting to the clinic today with complaints of chills, headache, and nausea that just started this morning. She reports no known fever or chills. Does have a 99? F temp in the clinic today. No known exposure to anyone with COVID, flu, or strep. She denies any chest pain or shortness of breath. Related Data Allergies Allergy/AdvReac Type Severity Reaction Status Date / Time No Known Allergies Allergy Verified 10/10/22 14:56 Review of Systems Review of Systems: Pertinent positives per HPI. Patient denies any fever, rash, visual changes, dizziness, cough, runny nose, sore throat, shortness of breath, chest pain, palpitations, vomiting, diarrhea, constipation, abdominal pain, or any urinary issues. PMFSH Past Medical History Medical History Patient denies medical problems Family History Family History Other Unknown family medical history Social History Social History Smoking status: Never smoker Second hand tobacco smoke exposure: No Substance use: never Gender identity (if verbalized by the patient): Female Spiritual care concerns: No Comments At the time of my signature, I reviewed and agree with the nursing past medical, surgical, social, and family history. There is no relevant family history pertinent to the patient complaint. Exam Narrative: General: Well-developed, well nourished, in no apparent distress Head: Normocephalic, atraumatic Eyes: Pupils equally round and reactive to light bilaterally, EOM intact, sclera and conjunctive clear, no discharge, lids normal Ears: TMs intact and clear, ear canals clear, no drainage, grossly hearing normal. Nose: Nares patent, clear discharge, no inflammation, no sinus tenderness. Mouth: Oropharynx red without lesions or masses, good dentition, MMM. Neck: Supple, trachea midline, no enlargement of anterior or posterior cervical nodes, no thyroid masses or goiter palpable. Cardio: Regular rate and rhythm, s1 and s2 normal, no murmur appreciated. Resp: Clear to auscultation bilaterally anteriorly and posteriorly, no rhonchi, rales, wheezing or rubs Course Course Emergency Course: Portions of this record may have been created with voice recognition software. Level of Care: Express Care Visit Vital Signs Vital signs: Vital signs reviewed MDM - URI/Sore Throat MDM Narrative Medical decision making narrative: At the time of visit patient is resting on the exam table. Strep, COVID, and influenza testing were performed. All testing was negative. I suspect patient has viral syndrome. Will send in prescription for some Zofran for nausea. Supportive measures were discussed with the patient she voiced understanding discharge instructions agrees to treatment plan. Differential Diagnosis Differential diagnosis: Likely upper respiratory infection, otitis media, sinusitis, viral infection, bronchitis, influenza, pharyngitis and other (COVID) Discharge Plan Discharge Clinical Impression: Acute viral syndrome, Nausea Patient Disposition: Home, Self-Care Condition: Stable Instructions: Antibiotic Form, Acute Nausea and Vomiting (ED), Viral Syndrome (ED) Additional Instructions: Las pruebas de COVID, influenza y estreptococos dieron negativo en la cl?irina hoy. Enviaremos estreptococos para cultivo y si da positivo en 2 d?as, nos pondremos en contacto con usted y le administraremos antibi?ticos en luli momento. Bentley los medicamentos recetados solo sheila recetados
[2023-04-29 19:53] VITALS: BP 105/61; PULSE 92; RESP 16; TEMP 37; O2SAT 100
== END 2023-04-29 20:12 | disposition home or self-care (01) ==
PROVIDERS: Emergency Provider Nurse Practitioner Family; PCP Registered Nurse
DX: B34.9 Viral infection, unspecified (principal); R11.0 Nausea; Z20.822 Contact with and (suspected) exposure to COVID-19
CPT/HCPCS: 87081; 87426; 87804; 87880; 99213; C9803; G0463

== ENCOUNTER 2023-06-18 13:36 | Emergency (ER) | payer OTHER, SELFPAY ==
[2023-06-18 13:46] VITALS: BP 105/70; PULSE 94; RESP 16; TEMP 37.1; O2SAT 100
--- NOTE | 2023-06-18 14:16 | ED.FEMALEGU ---
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 Patient reports that she has never had a urinary tract infection before. Patient reports that she just completed her menses last week, denies any concern for STD's or any vaginal discharge. MD elicited complaint: UTI Onset (ago): day(s) (yesterday afternoon) Location of symptoms: perineum, suprapubic and low back Female Urogenital Radiation: Suprapubic Severity scale (1-10): 3 Quality of pain: burning Vaginal discharge: none Vaginal bleeding: none Treatment prior to arrival: none Related Data Allergies Allergy/AdvReac Type Severity Reaction Status Date / Time No Known Allergies Allergy Verified 10/10/22 14:56 Review of Systems Review of Systems: CONSTITUTIONAL: Denies fever, chills, or sweats. CARDIOVASCULAR: Denies chest pain, palpitations, or edema. RESPIRATORY: Denies cough or dyspnea. GASTROINTESTINAL: suprapubic, left lower abdomen around to lower back ,no nausea, vomiting, or diarrhea. GENITOURINARY: Reports dysuria, frequency, urgency. Denies flank pain positive lower back pain and hematuria. SKIN: Denies rash or itching. MUSCULOSKELETAL: Positive lower back pain or myalgia. Denies CVA tenderness NEUROLOGIC: Denies headache All systems reviewed & are unremarkable except as noted in HPI and below PMFSH Past Medical History Medical History Gestational diabetes Miscarriage Surgical History Surgical History (Updated 06/19/23 @ 10:13 by Concha Martinez NP) History of surgical removal of skin lesion Family History Family History Other Unknown family medical history Social History Social History Smoking status: Never smoker Second hand tobacco smoke exposure: No Substance use: never Gender identity (if verbalized by the patient): Female Spiritual care concerns: No Comments At time of signature, agree with nursing past medical, surgical, social and family history. There is no relevant family history pertinent to the presenting complaint Exam Narrative: GENERAL: Well-appearing, well-nourished, and in no acute distress. HEAD: Normocephalic, atraumatic. NECK: Supple.no lymphadenopathy CHEST: Clear to auscultation. No respiratory distress.SAO2 100% on room air HEART: Regular rate and rhythm. No murmur heard. Normal peripheral pulses. ABDOMEN: Soft,tender suprapubic, nondistended, normal active bowel sounds. No CVA tenderness, reports lower back pain, urinary burning frequency and urgency EXTREMITIES: Normal range of motion. No edema. SKIN: Warm, dry, no rash. NEURO: No focal deficits. Alert and oriented x3. Course Course Emergency Course: Patient is aware of diagnosis, understands and agrees to treatment plan.? Anticipatory guidance given.? Patient agrees to follow-up as directed and is aware of reasons to seek care at the emergency department. Portions of this record may have been created with voice recognition software Level of Care: Express Care Visit Vital Signs Vital signs: Vital Signs Temperature 37.1 C 06/18/23 13:46 Pulse Rate 94 06/18/23 13:46 Respiratory Rate 16 06/18/23 13:46 Blood Pressure 105/70 06/18/23 13:46 Pulse Oximetry 100 06/18/23 13:46 Temperature 37.1 C 06/18/23 13:46 Pulse Rate 94 09/
== END 2023-06-18 14:55 | disposition home or self-care (01) ==
PROVIDERS: Emergency Provider Registered Nurse; PCP Registered Nurse
DX: N39.0 Urinary tract infection, site not specified (principal)
CPT/HCPCS: 81003; 87077; 87086; 87088; 87186; 99213; G0463

== ENCOUNTER 2023-07-02 18:58 | Emergency (ER) | payer OTHER, SELFPAY ==
--- NOTE | 2023-07-02 19:03 | ED.EAR ---
HPI - Ear Problem General Chief complaint: Ear Stated complaint: Earache Source: patient and RN notes reviewed Mode of arrival: ambulatory Limitations: no limitations History of Present Illness HPI Narrative: Patient is a 33-year-old female who presents to the [facility] with complaints of left ear pain for the past week. She denies ear drainage. She reports mild pain to the left ear. States that she has intermittent ringing in the ear. She denies recent illness, cough, congestion, fever. Related Data Allergies Allergy/AdvReac Type Severity Reaction Status Date / Time No Known Allergies Allergy Verified 10/10/22 14:56 Review of Systems Review of Systems: CONSTITUTIONAL: Denies fever, chills, or sweats. EYES: Denies visual changes, redness, or discharge. ENT: Reports otalgia but denies sore throat. CARDIOVASCULAR: Denies chest pain, palpitations, or edema. RESPIRATORY: Denies cough or dyspnea. GASTROINTESTINAL: Denies abdominal pain, nausea, vomiting, or diarrhea. GENITOURINARY: Denies dysuria or hematuria. SKIN: Denies rash or itching. MUSCULOSKELETAL: Denies back pain, joint pain, or myalgia. NEUROLOGIC: Denies headache, numbness, or weakness. Pertinent positives per HPI. PMFSH Past Medical History Medical History Gestational diabetes Miscarriage Surgical History Surgical History History of surgical removal of skin lesion Family History Family History Other Unknown family medical history Social History Social History Smoking status: Never smoker Second hand tobacco smoke exposure: No Substance use: never Gender identity (if verbalized by the patient): Female Spiritual care concerns: No Comments At the time of my signature, I reviewed and agree with the nursing past medical, surgical, social, and family history. There is no relevant family history pertinent to the patient complaint. Exam Narrative: GENERAL: This is a well-nourished, well-developed patient, in no apparent distress. HEAD: normocephalic, atraumatic. EYES: Sclera clear/white. Vision is grossly intact. EARS: External ears normal, auditory canals clear and without drainage, TM normal without perforation on right. Left TM opaque. Hearing grossly intact. NOSE: External nose normal with no obvious nasal discharge, nares without redness, no rhinorrhea. THROAT: Mucous membranes moist, posterior pharynx clear. NECK: Neck supple, non-tender without lymphadenopathy, masses or thyromegaly. CARDIOVASCULAR: Regular rate and rhythm without murmurs, gallops, or rubs. RESPIRATORY: Clear to auscultation. Breath sounds equal bilaterally. No wheezes, rales, or rhonchi. GASTROINTESTINAL: Abdomen soft, non-tender, nondistended. Bowel sounds are active. No hepato-splenomegaly, or palpable masses. No guarding. SKIN: warm, intact with no suspicious lesions or rash, good texture and turgor. NEURO: awake, alert, and oriented to person, place and time. There were no obvious focal neurologic abnormalities. Course Course Level of Care: Express Care Visit Vital Signs Vital signs: Vital Signs Temperature 98.1 F 07/02/23 19:06 Pulse Rate 79 07/02/23 19:06 Respiratory Rate 16 07/02/23 19:06 Blood Pressure 99/66 L 07/02/23 19:06 Pulse Oximetry 99 07/02/23 19:06 Temperature 98.1 F 07/02/23 19:06 Pulse Rate 79 07/02/23 19:06 Respiratory Rate 16 07/02/23 19:06 Blood Pressure 99/66 L 07/02/23 19:06 Pulse Oximetry 99 07/02/23 19:06 Reviewed Medical Decision Making MDM Narrative Medical decision making narrative: Take antibiotics as directed. May given ibuprofen and/or Tylenol as needed for pain and/or fever. Follow up with primary care provider in 7-10 days to have ear rechecked.
[2023-07-02 19:06] VITALS: BP 99/66; PULSE 79; RESP 16; TEMP 36.7; O2SAT 99
== END 2023-07-02 19:13 | disposition home or self-care (01) ==
PROVIDERS: Emergency Provider Nurse Practitioner; PCP Registered Nurse
DX: H66.002 Acute suppurative otitis media without spontaneous rupture of ear drum, left ear (principal)
CPT/HCPCS: 99213; G0463